=== PATIENT | male | born 1975 | race Caucasian/White ===

== ENCOUNTER 2024-05-11 07:51 | Outpatient (REF) | payer OTHER, SELFPAY ==
--- NOTE | ~2024-05-11 | XR_ITS ---
EXAMINATION: XR HAND 3 OR MORE VIEWS LEFT HISTORY: M79.642 - Pain in left hand COMPARISON: There are no prior studies available for comparison. FINDINGS: Three views of the left hand are submitted. Osseous mineralization is normal. There is no fracture or dislocation. The joint spaces are preserved. The soft tissues are unremarkable. XR/XR hand LT min 3V IMPRESSION: Unremarkable examination of the left hand. Electronically signed by: Kevin Leslie MD 05/13/2024 10:55 AM NAUN
== END 2024-05-11 07:52 | disposition home or self-care (01) ==
LOC: HO.HOSX 07:51
DX: M65.312 Trigger thumb, left thumb (principal)
CPT/HCPCS: 73130

== ENCOUNTER 2024-05-11 08:16 | Outpatient (AMB) | payer OTHER, SELFPAY ==
--- NOTE | 2024-05-11 08:23 | MHC.OFFVIS ---
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 Patient reports that he has been having pain in the left thumb for about 2 months now. Denies injury. Pain is felt all the time, worse at night. He feels excruciating pain while trying to pull up the sheets in bed. Experiences locking and catching as well as some numbness. He takes Naproxen PRN pain, with mild relief. 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 Patient reports that he has been having pain in the left thumb for about 2 months now. Denies injury. Pain is felt all the time, worse at night. He feels excruciating pain while trying to pull up the sheets in bed. Experiences locking and catching as well as some numbness. He takes Naproxen PRN pain, with mild relief. 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 Neuro: Normal sensation of the tips of all digits of the left hand at this time Vascular: Cap refill brisk Pain: Patient reports tenderness to palpation of the A1 ysabel of the left thumb Mild pain with range of motion of the left thumb ROM: There is no visible and palpable locking and catching of the left thumb in the office today However, the patient does show me a video of his thumb locking and catching a previous time Patient is able to flex and extend all other digits of the left hand fully and without Skin: No lacerations or abrasions. General: No ecchymosis, erythema, or evidence of infection. Psych: Appears grossly normal Affect normal Attitude cooperative Results Reviewed Results Reviewed: X-rays obtained in the office today and independently reviewed by me, Izaiah Dexter PA-C, demonstrate no fracture or acute bony abnormality of the left hand. Assessment & Plan Assessment & Plan (1) Trigger thumb, left thumb: Code(s): M65.312 - Trigger thumb, left thumb Category: Medical Plan 1. Trigger thumb, left I educated the patient about the condition. I discussed both operative and nonoperative treatment options. The patient would like to proceed with surgery. The risks and benefits of operative treatment were discussed with the patient and the patient wishes to proceed with surgery. These risks include, but are not limited to, risk of damage to blood vessels, nerves, tendons, infection, recurrence, incomplete relief of preoperative symptoms, persistent pain, possible need for further surgery, and the risks associated with regional blocks and/or anesthesia. Plan is to take the patient to the operating room at some point in the next few weeks for the following procedures: 1. Left trigger thumb release under local anesthesia All of the preoperative paperwork including the consent was discussed today. All of the patient's questions were answered in the clinic today. The patient understands that they will be in contact with our surgical oncologist to discuss scheduling their procedure. Patient denies diabetes, blood thinners, asthma, heart issues, lung issues, kidney issues, or current smoking. Orders: Orders XR hand LT min 3V Today M79.642 - Pain in left hand Coding Level of Care Code New Pt Level 4 (85433) Diagnoses Trigger thumb, left thumb M65.312
--- OUTSIDE RECORDS SUMMARY | 2024-05-11 08:25 | XMS_ITS | Data Portability ---
Author Organization [facility], [facility] Address [address] [place] [address] Assessment Encounter Date Assessment Date Assessment LastModified by Organization Details LastModified Time 09/03/2023 09/03/2023 R CTR 08/07/23 L CTR 08/21/23 [email or web address] Not available 09/01/2023 11:22:19 Plan of Treatment Reminders Order Date Submit Date Provider Last Modified By Organization Details Last Modified Time Details Appointments None record ed. Lab None record ed. Referral None record ed. Procedures None record ed. Surgeries None record ed. Imaging None record ed. Medication Orders None record ed. Patient TargetsNo targets recorded. Patient InstructionsNo instructions recorded. Reason for Referral None Reported. Results Created Date Observation Date Name Description Value Unit Range Abnormal Flag Note LastModifiedBy Organization Detail LastModifiedTime 01/02/2008/06/2021 imagi ng/di agnos tic resul t No observ ation record ed. [email or web address] Not Available 12/05 05:46:56 01/02/20 24 04/09/2020 imagi ng/di agnos tic resul t No observ ation record ed. [email or web address] Not Available 12/05 05:47:44 01/02/20 24 10/07/2018 imagi ng/di agnos tic resul t No observ ation record ed. [email or web address] Not Available 12/05 05:47:53 Result Notes None recorded. Procedures Surgical History Date Name Laterality Status Provider Name and Address Organization Details Recorded Time CARPAL TUNNEL RELEASE (SURG) completed DIANNA ELIZABETH [facility] 08/08/2023 08:15:36 Imaging Results Imaging Date Name Status [facility] Details LastModified Time 08/06/2021 imaging/diag nostic result completed Information not available 01/02/2024 05:46:56 04/09/2020 imaging/diag nostic result completed Information not available 01/02/2024 05:47:44 10/07/2018 imaging/diag nostic result completed Information not available 01/02/2024 05:47:53 Procedure Notes None recorded. Medical Equipment None Reported. Medications Name Sig Start Date Stop Date Status Note LastModified by Organization Details LastModified Time amoxicillin 500 mg capsule TAKE ONE CAPSULE BY MOUTH EVERY 6 HOURS UNTIL GONE active Not Available Not Available N ot Available ibuprofen 800 mg tablet TAKE ONE TABLET BY MOUTH EVERY 8 HOURS NEEDED FOR PAIN active Not Available Not Available No t Available acetaminophe n ER 650 mg tablet,exten ded release TAKE ONE TABLET BY MOUTH EVERY 6 HOURS NEEDED FOR PAIN active Not Available Not Available No t Available pseudoephedr ine-guaifene sin ER 80-700 mg tablet,exten ded release 1 po qhs 2011 active Statu s: 'Curr ent'; Not Available Not Available Not Available omeprazole 20 mg capsule,salvador yed release TAKE 1 CAPSULE BY MOUTH ONCE DAILY active Not Available Not Available No t Available sertraline 50 mg tablet TAKE 1/2 HALF) A TABLET BY MOUTH NIGHTLY FOR 7 DAYS, THEN INCREASE TO 1 TABLET NIGHTLY active Not Available Not Available No t Available naproxen 500 mg tablet TAKE ONE TABLET BY MOUTH TWICE A DAY NEEDED FOR PAIN active Not Available Not Available No t Available oxycodone 5 mg tablet TAKE ONE TABLET BY MOUTH EVERY 6 HOURS NEEDED FOR PAIN active Not Available Not Available No t Available rosuvastatin 10 mg tablet TAKE ONE TABLET BY MOUTH EVERY EVENING AT BEDTIME - PLEASE GET FASTING LABS DONE WHEN ALMOST DONE WITH THIS RX active Not Available Not Available No t Available tadalafil 20 mg tablet TAKE ONE TABLET BY MOUTH 2 HOURS PRIOR TO INTERCOURSE active Not Available Not Available Not Available oxycodone HCl-oxycodon e-ASA twice a dayDO NOT DRIVE WHILE TAKING THIS MEDICATION 2021 active Statu s: 'Curr ent'; Not Available Not Available Not Available Vitals None Recorded Social History None recorded. Functional Status None recorded. Mental Status None recorded. Family History Nothing Reported. Medical History No medical history recorded. Past Encounters Encounter ID Performer Location Encounter Start Date Encounter Closed Date Diagnosis/Indication Diagnosis SNOMED-CT Code Diagnosis ICD10 Code Diagnosis Note [id number] Esperanza Groves, OTR/L,CHT [place] [address] [place] [address] 09/03/2023 08:14:37 09/03/2023 08:52:49 Postoperative care [id number] Z48.89 Sutures are removed today without complicati on. Education regarding the involved anatomy and the surgical procedure was well received. Scar massage was demonstrat ed including a variety of movements to disperse the fibrotic tissue which, if untouched, would create a thickened area of scar. This is instructed with a handout given to the patient. Further discussion with regards to lymphatic flow and the tracking of fluids down the fingers, across the palm and through the wrists to the lymph node was provided with a demonstrat ion for manual edema mobilizati on techniques . Additional home exercises including tendon gliding and median nerve gliding were demonstrat ed in the office today with a handout also provided. A small amount of therapy putty was introduced and demonstrat ed with the correspond ing worksheet was provided as well. Further discussion about the MELT technique using a small ball for pillar pain with informkeon n was provided. Per the surgeon , since there are no wound care complicati ons or concerns, no follow up appointmen t needed. The patient has been educated with a significan t Home Exercise Program to be completed over the next 2 weeks. The patient was instructed to contact the office if there should arise any concerns with the surgical site or if there is not sufficient functional recovery. All questions, with regards to return to functional activities , are answered prior to leaving the office today. This office visit was complete at 30 minutes. 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 The patient demonstrat es light avoids use of the surgical hand for such activities as gathering personal items, and adjusting the chair. The patient shared their personal experience over the last 4 weeks living with a postoperat charleen hand and modifying activities around the house. Fluctuatio ns in pain levels and the use of medication is also reviewed. The left hand surgical wound is inspected and found to be clean and dry. The edges of the incision are approximat ed with intact sutures. Patient has intact neurovascu lar structures with only slight tenderness at the incision. No surroundin g erythema, wound drainage, warmth or signs of infection. The patient states no pain when palpating around the surgical site and the surroundin g structures . The right hand surgery site is well-heale d with some pink sensitive skin and dry edges. There is minimal thickness or ridging at the surgery site. We do see some tightness of the thenar and hyperthena r upon palpation The digits on both hands are able to demonstrat e a nearly full composite fist. Thumb is able to flex and oppose to the small finger. Digits are able to demonstrat e full extension/ hyperexten ochoa to open and flatten the palm. The wrist haves nearly full flexion /extension /circumduc tion range of motion. The patient is able to demonstrat e both tip, tripod, and lateral pinch. The thenar muscle shows no atrophy. Strength of the first dorsal interossei /adductor bilaterall y is 5/5. The distal sensation for light touch is assessed. The patient is bilaterall y able to demonstrat e a positive response to light touch. The patient reports difficulti es with fine sensation as related to dexterity tasks with the thumb, index, middle fingers. With regards to the left surgical scar, there is a thickness and raised area at the central portion. Scabbing, dry skin and fibrotic cells create a ridge at the volar central palm. This may prove to be detrimenta l with functional grasp tasks. Health Concerns Section Related Observation LastModified by Organization Detai ls LastModified Time None Recorded Concern Status LastModified by Organization Details LastModified Time None Recorded Advance Directives Directive None Recorded Payers None recorded. 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 He had the surgery with Dr. Gold for the right hand on 08/26) on left hand on 08/21/2023. Esperanza Groves, JASONR/L,T [address] [facility] [facility] [address], [place], [address], [facility] [place] [facility] 09/03/2023 08:52:43
[2024-05-11 08:27] VITALS: BMI 32.7
== END 2024-05-11 08:39 | disposition home or self-care (01) ==
PROVIDERS: PCP Nurse Practitioner Family
DX: M65.312 Trigger thumb, left thumb (principal)
CPT/HCPCS: 99204

== ENCOUNTER 2024-07-13 10:47 | Day surgery (SDC) | payer OTHER, SELFPAY ==
--- OUTSIDE RECORDS SUMMARY | 2024-07-12 16:55 | XMS_ITS | Data Portability ---
Author Organization [facility], [facility] Address [address] [place] [address] Assessment Encounter Date Assessment Date Assessment LastModified by Organization Details LastModified Time 09/03/2023 09/03/2023 R CTR 08/07/23 L CTR 08/21/23 [email or web address] Not available 09/01/2023 11:22:19 Plan of Treatment [...] CARPAL TUNNEL RELEASE (SURG) completed DIANNA ELIZABETH [facility] 08/08/2023 08:15:36 Imaging Results Imaging Date Name Status [facility]Modified by [facility] Details LastModified Time 08/06/2021 imaging/diag nostic result [...] SNOMED-CT Code Diagnosis ICD10 Code Diagnosis Note [id number] Esperanza Groves, OTR/L,CHT [place] [address] [place] [address] 09/03/2023 08:14:37 09/03/2023 08:52:49 Postoperative care [id number] Z48.89 Sutures are removed today without complicati [...] 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 He had the surgery with Dr. Gold for the right hand on 08/26) on left hand on 08/21/2023. Esperanza Groves, JASONR/L,T [address] [facility] [address], [place], [address], [facility] [place] [facility] 09/03/2023 08:52:43
[2024-07-13 11:39] VITALS: BP 140/80; PULSE 81; RESP 15; TEMP 36.4; O2SAT 97; BMI 33.5
--- NOTE | 2024-07-13 12:04 | MHC.SHP ---
Pre-Procedural Eval Section A - 24 Hr Update-Section A only Date of Service: 07/13/24 The patient is an INPATIENT: No Changes since office visit: No Cold of Flu in the past 2 weeks, No New Medical Problems, No Changes in Medication and No Patient answered all questions The patient has been examined within 24 hours of the surgical procedure. The History & Physical has been completed within 30 days and I have reviewed it.: Yes Section B - Complete if H&P > 30 days Chief Complaint: Trigger thumb, left thumb Allergies: Allergies Allergy/AdvReac Type Severity Reaction Status Date / Time No Known Allergies Allergy Verified 07/13/24 11:43 Plan Diagnosis/Plan: Unchanged I have reviewed the history and physical and performed a pertinent physical examination on my patient. No changes have occurred unless specified. Time Spent With Patient Time: Total time managing care of this patient today ____ minutes.
--- NOTE | 2024-07-13 12:04 | W.PM.OPN ---
Operative Note Operative Note Date of Service: 07/13/24 Narrative: Operative Note Preop diagnosis: 1. Left thumb Trigger finger Postop diagnosis: 1. Left thumb Trigger finger Procedure: 1. Left thumb A1 ysabel release Surgeon: Geri Wing MD Pad Making Machine Operator: Izaiah WOLFF Anesthesia: local block using 1% lidocaine with epinephrine Findings: No locking or catching after A1 ysabel release EBL: Less than 5 mL Tourniquet time: None Specimens: None Complications: None Disposition: Brought to recovery room in stable condition Plan: Follow-up for 10-14 days for wound check and suture removal Indications: The patient is 49 years old, with a left thumb trigger finger that has been unresponsive to nonoperative management. The risks and benefits of operative treatment including but not limited to risk of damage to blood vessels, nerves, tendons, infection, persistent pain, persistent symptoms, recurrence or possible need for additional surgery were discussed with the patient and the patient wishes to proceed with surgery. Procedure: Once consent was obtained a local block was performed in the preop area using a combination of 1% lidocaine with epinephrine. The patient was then brought back to the operating suite and placed on the operative table in supine position. The left upper extremity was prepped and draped in a standard surgical fashion. Once assured that we had a good block, a 1.5 cm oblique incision was made centered over the A1 ysabel of the left thumb . The incision was made through the skin to the subcutaneous tissues using a #15 blade. Careful dissection was made down to the level of the A1 ysabel using tenotomy scissors, with care being taken to protect the nearby neurovascular structures. A longitudinal incision was made in the A1 ysabel 1st using a #15 blade, then using tenotomy scissors under direct visualization. The A1 ysabel was noted to be thickened. Following our A1 ysabel release, we no longer saw any locking or catching of the digit with flexion and extension. Once satisfied with our A1 ysabel release the wound was copiously irrigated with normal saline and hemostasis was obtained with a brief period of local pressure. The skin edges were reapproximated with some 5.0 nylon suture material and a sterile dressing was applied. The patient appears to have tolerated the procedure well and with no complications. All digits were well vascularized at the conclusion of the case.
[2024-07-13 13:05] VITALS: BP 155/93; PULSE 80; RESP 22; TEMP 36.8; O2SAT 98
== END 2024-07-13 13:05 | disposition home or self-care (01) ==
PROVIDERS: PCP Nurse Practitioner Family; Visit Provider Orthopaedic Surgery
PROC: (CPT 26055; principal; 2024-07-13 14:30)
DX: M65.312 Trigger thumb, left thumb (principal); M79.645 Pain in left finger(s); R20.0 Anesthesia of skin; Z79.1 Long term (current) use of non-steroidal anti-inflammatories (NSAID); Z98.890 Other specified postprocedural states
CPT/HCPCS: 26055; J0171; J2003

== ENCOUNTER → 2024-07-13 10:47 | Outpatient (BNV) | payer OTHER, SELFPAY | PROVIDERS: PCP Nurse Practitioner Family; Visit Provider Orthopaedic Surgery | DX: M65.312 Trigger thumb, left thumb (principal) | CPT/HCPCS: 26055 ==

== ENCOUNTER 2024-07-21 08:41 | Outpatient (AMB) | payer OTHER, SELFPAY ==
--- NOTE | 2024-07-21 08:45 | A.OFFVIS_ITS ---
Intake Visit Reasons: PO LT trigger thumb 07/08/24 AR Intake Note: Mukul is a 49 year old right hand dominant male who presents today post operatively s/p Left thumb A1 ysabel release DOS: 07/13/24 w/ Dr Geri Wing. Sutures removed and steri strips applied at today's visit. Patient states that his symptoms has improved. Allergies No Known Allergies Allergy (Verified 07/21/24 08:45) HPI HPI PO LT trigger thumb 07/08/24 AR: Details: Mukul is a 49 year old right hand dominant male who presents today post operatively s/p Left thumb A1 ysabel release DOS: 07/13/24 w/ Dr Geri Wing. Sutures removed and steri strips applied at today's visit. Patient states that his symptoms has improved. Denies any ongoing locking or catching of the left thumb. Denies any numbness or tingling of the left hand. No other acute complaints or concerns at this time. 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 Neuro: Normal sensation of the tips of all digits of the left hand at this time Vascular: Cap refill brisk Pain: Patient reports no tenderness to palpation of the A1 ysabel of the left thumb Mild pain with range of motion of the left thumb ROM: There is no visible and palpable locking and catching of the left thumb in the office today Patient is able to flex and extend all other digits of the left hand fully and without Skin: Well approximated and well healing incision site noted of the A1 ysabel of the left thumb General: No ecchymosis, erythema, or evidence of infection. Psych: Appears grossly normal Affect normal Attitude cooperative Assessment & Plan Assessment & Plan (1) Trigger thumb, left thumb: Code(s): M65.312 - Trigger thumb, left thumb Category: Medical Plan 1. Status post left trigger thumb release DOS 07/08/2024 Patient appears to be recovering well postoperatively Patient is educated about the typical recovery course Sutures removed, Steri-Strips applied At this time, patient is educated he will require no further acute follow-up with us, as he appears to have recovered very well Patient was amenable to this plan Patient will follow-up as needed with any acute concerns Coding Level of Care Code Global (67055) Diagnoses Trigger thumb, left thumb M65.312
== END 2024-07-21 09:11 | disposition home or self-care (01) ==
LOC: HO.HOS 08:41
PROVIDERS: PCP Nurse Practitioner Family
DX: M65.312 Trigger thumb, left thumb (principal)
CPT/HCPCS: 99024

== ENCOUNTER → 2024-07-21 08:41 | Outpatient (BNVA) | payer OTHER, SELFPAY | PROVIDERS: PCP Nurse Practitioner Family | DX: Z47.89 Encounter for other orthopedic aftercare (principal); Z98.890 Other specified postprocedural states; M65.312 Trigger thumb, left thumb | CPT/HCPCS: 99212 ==

== ENCOUNTER 2024-12-07 08:07 | Outpatient (AMB) | payer OTHER, SELFPAY ==
[2024-12-07 08:17] VITALS: BMI 33.4
--- NOTE | 2024-12-07 08:17 | A.OFFVIS_ITS ---
Vital Signs 12/07/24 08:17 Height 5 ft 10 in Weight 233 lb BMI 33.4 Intake Visit Reasons: Left knee pain and giving way Intake Note: Mukul is a 49 year old male who presents with complaints of progressively worsening left knee pain and giving way. The patient underwent left knee anterior cruciate ligament reconstructive surgery by Dr. Prieto several years ago after twisting his knee while playing basketball. The patient states that several months ago he reaggravated his knee. He twisted his knee once again and had acute onset of pain along the medial aspect of his knee. He states that his left knee will give out several times per day. He has failed the last 6 weeks of conservative treatment which has included Tylenol, anti-inflammatory medicines and formal physical therapy. The therapy seems to have aggravated his pain. At this point his left knee pain and mechanical symptoms are interfering with his activities of daily living and his ability to sleep well through the night. 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 Physical Exam Vital Signs: BMI result Body Mass Index 33.4 Const Other: Well-nourished well-developed very friendly male awake alert and oriented x3 in no acute distress Extrem Other: Bilateral lower extremity examination shows good capillary refill, no skin lesions noted, normal sensation light touch Left knee examination shows that the surgical incisions are well healed, no erythema, mild crepitus with range of motion, tenderness along his medial joint line, positive Jj's test Results Reviewed Results Reviewed: X-rays of the patient's left knee show mild diffuse joint space narrowing, no acute bony abnormalities Assessment & Plan Assessment & Plan (1) Tear of medial meniscus of left knee: Code(s): S83.242A - Other tear of medial meniscus, current injury, left knee, initial encounter Category: Medical Plan Mr. Clark presents with left knee pain and mechanical symptoms most likely due to a tear of his medial meniscus. Thus, I will send the patient for an MRI of his left knee for further evaluation. I will contact him by phone once the MRI results are available. Feel free to call me at any time should questions regarding his orthopedic management arise. I spent 20 minutes in reviewing the patient's records and imaging studies, seeing the patient and documenting in the medical record. Orders: Orders XR knee LT 3V Today M25.562 - Pain in left knee MR knee LT wo con 12/08/24 S83.242A - Other tear of medial meniscus, current injury, left knee, initial encounter Coding Level of Care Code Est Pt Level 3 (17922) Complex EM visit Add On G2211 Diagnoses Tear of medial meniscus of left knee S83.242A
== END 2024-12-07 08:36 | disposition home or self-care (01) ==
LOC: HO.HOS 08:08
PROVIDERS: PCP Nurse Practitioner Family; Visit Provider Orthopaedic Surgery
DX: S83.242A Other tear of medial meniscus, current injury, left knee, initial encounter (principal)
CPT/HCPCS: 99213

== ENCOUNTER → 2024-12-07 08:10 | Outpatient (BNV) | payer OTHER, SELFPAY | PROVIDERS: Visit Provider Radiology Diagnostic Radiology | DX: M25.562 Pain in left knee (principal) | CPT/HCPCS: 73562 ==

== ENCOUNTER 2024-12-07 08:41 | Outpatient (REF) | payer OTHER, SELFPAY ==
--- NOTE | ~2024-12-07 | XR_ITS ---
EXAMINATION: XR KNEE 3 VIEWS LEFT HISTORY: M25.562 - Pain in left knee COMPARISON: There are no prior studies available for comparison. FINDINGS: Three views of the left knee are submitted. Osseous mineralization is normal. There are changes of prior ACL repair. There is no fracture or dislocation. There is mild degenerative change of the patellofemoral compartment with osteophyte formation. The soft tissues are unremarkable. XR/XR knee LT 3V IMPRESSION: Status post ACL repair. Mild degenerative change of the patellofemoral compartment. Electronically signed by: Kevin Leslie MD 12/07/2024 09:17 AM EDT
== END 2024-12-07 08:42 | disposition home or self-care (01) ==
LOC: HO.HOSX 08:41
PROVIDERS: Visit Provider Orthopaedic Surgery
DX: S83.242A Other tear of medial meniscus, current injury, left knee, initial encounter (principal); M25.562 Pain in left knee; X50.0XXA Overexertion from strenuous movement or load, initial encounter
CPT/HCPCS: 73562; 99212

== ENCOUNTER → 2024-12-24 08:33 | Outpatient (BNV) | payer OTHER, SELFPAY | PROVIDERS: Visit Provider Radiology Diagnostic Radiology | DX: M23.42 Loose body in knee, left knee (principal) | CPT/HCPCS: 73721 ==

== ENCOUNTER 2024-12-24 08:34 | Outpatient (REF) | payer OTHER, SELFPAY ==
--- NOTE | ~2024-12-24 | MR_ITS ---
CLINICAL HISTORY: S83.242A - Other tear of medial meniscus, current injury, left knee, ini... Exam: MRI of the left knee without intravenous contrast. Comparison: Radiographs december 07, 2024. Findings: Patient has undergone prior ACL reconstruction. The reconstructed ligament is intact. Mild increased signal intensity along the course of the reconstructed ligament without disruption of the fibers. Posterior cruciate ligament is intact. Subtle degenerative appearing tear of the junction of the posterior horn and body of the medial meniscus. No tears of the lateral meniscus. Quadriceps tendon and patellar tendon are intact. Medial and lateral retinaculum are intact. Medial collateral ligament and lateral collateral complex are intact. Partial-thickness cartilage defects are seen along the lateral aspect of the medial femoral condyle. Subtle cartilage fibrillation seen at the mid weight-bearing surface of the lateral femoral condyle. Mild cartilage softening at the median eminence of the patella with subtle partial-thickness cartilage defects. Moderate-sized knee joint effusion. Posterior loose body measures 9 mm in size. There is a small Bruno's cyst. This Bruno's cyst is leaking inferiorly. Impression: 1. Intact ACL reconstruction. 2. Degenerative appearing tear of the medial meniscus at the junction of the posterior horn and body. 3. Tricompartmental osteoarthritis as above. Joint effusion with posterior loose body. 4. Leaking Bruno's cyst. This document has been electronically signed by: Braden Galloway MD on 12/25/2024 10:24:33
== END 2024-12-24 08:35 | disposition home or self-care (01) ==
LOC: HO.MRI 08:34
PROVIDERS: Visit Provider Orthopaedic Surgery
DX: S83.242A Other tear of medial meniscus, current injury, left knee, initial encounter (principal)
CPT/HCPCS: 73721

== ENCOUNTER 2025-01-20 10:20 | Outpatient (AMB) | payer OTHER, SELFPAY ==
[2025-01-20 11:01] VITALS: BMI 33.4
--- NOTE | 2025-01-20 11:01 | A.OFFVIS_ITS ---
Vital Signs 01/20/25 11:01 Height 5 ft 10 in Weight 233 lb BMI 33.4 Intake Visit Reasons: OV - Left MMT & OA - Discuss Surgery Intake Note: Mukul is a 49 year old male who presents today for a follow up of his Left Knee. Patient was last seen with Dr. Vaca where he reported history of an ACL Reconstruction with Dr. Prieto at [facility]. Currently reports a twisting injury to the Left knee several months ago. An MRI was ordered by Dr. Vaca and upon receiving results a referral was placed to discuss surgery. Allergies No Known Allergies Allergy (Verified 12/07/24 08:20) HPI HPI OV - Left MMT & OA - Discuss Surgery: Details: Mukul is a 49 year old male who presents today for a follow up of his Left Knee. Patient was last seen with Dr. Vaca where he reported history of an ACL Reconstruction with Dr. Prieto at [facility]. Currently reports a twisting injury to the Left knee several months ago. An MRI was ordered by Dr. Vaca and upon receiving results a referral was placed to discuss surgery. He describes difficulty with daily activities. He noticed this worsens several months ago when he was doing some moving at home. He stopped those activities over 2 months ago and still has had pain. He describes sharp medial-sided pain with twisting. He denies giving way. 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 There is tenderness to palpation medial joint line. He has a negative Ranjan's. Stable to varus and valgus stress. 2+ dorsalis pedis pulse. Skin intact to light touch. Vital Signs: BMI result Body Mass Index 33.4 Extrem Other: I personally reviewed the MR images. Impression: 1. Intact ACL reconstruction. 2. Degenerative appearing tear of the medial meniscus at the junction of the posterior horn and body. 3. Mild tricompartmental osteoarthritis as above. Joint effusion with posterior loose body. 4. Leaking Bruno's cyst. Results Reviewed Results Reviewed: I personally reviewed the MR images. Impression: 1. Intact ACL reconstruction. 2. Degenerative appearing tear of the medial meniscus at the junction of the posterior horn and body. 3. Tricompartmental osteoarthritis as above. Joint effusion with posterior loose body. 4. Leaking Bruno's cyst. Assessment & Plan Assessment & Plan (1) Tear of medial meniscus of left knee: Code(s): S83.242A - Other tear of medial meniscus, current injury, left knee, initial encounter Category: Medical Plan: This is a 49-year-old gentleman with a symptomatic left knee medial meniscus tear. His symptoms has been present for over 3 months and his MRI demonstrates a degenerative medial meniscus tear with an intact ACL. I reviewed the MRI with him and the treatment options. Given the sharp medial knee pain that is preventing him from engaging in meaningful daily activities I recommend arthroscopic partial medial meniscectomy. I explained the him the risks, benefits and alternatives to surgery. I explained the possibility of increased postoperative irritation due to his mild tricompartmental osteoarthritis. I discussed the risk of worsening arthritis in the future. I have discussed the risks of infection, stiffness and pain. He expressed understanding. All his questions were answered to the best of my abilities. Coding Level of Care Code Est Pt Level 4 (96102) Diagnoses Tear of medial meniscus of left knee S83.242A
== END 2025-01-20 11:41 | disposition home or self-care (01) ==
LOC: HO.HOS 10:21
PROVIDERS: Visit Provider Orthopaedic Surgery
DX: S83.242A Other tear of medial meniscus, current injury, left knee, initial encounter (principal)
CPT/HCPCS: 99214

== ENCOUNTER → 2025-01-20 10:20 | Outpatient (BNVA) | payer OTHER, SELFPAY | PROVIDERS: Visit Provider Orthopaedic Surgery | DX: S83.242A Other tear of medial meniscus, current injury, left knee, initial encounter (principal); X50.1XXA Overexertion from prolonged static or awkward postures, initial encounter; Y93.01 Activity, walking, marching and hiking; Y92.9 Unspecified place or not applicable; Y99.9 Unspecified external cause status; M17.12 Unilateral primary osteoarthritis, left knee; M66.0 Rupture of popliteal cyst; Z98.890 Other specified postprocedural states | CPT/HCPCS: 99212 ==

== ENCOUNTER 2025-02-16 05:59 | Day surgery (SDC) | payer OTHER, SELFPAY ==
[2025-02-08 11:04] VITALS: BMI 33.0
--- NOTE | 2025-02-09 12:05 | HO.ANESPROP2 ---
Documented by User: Sarah Garza NP 02/09/25 12:08 HPI - Anesthesia Eval Consult details Narrative: 50 yr old male for left Knee Arthroscopy with Medial Meniscectomy; PAT done by RN via phone GERD: on PPI PMFSH Active Problems Active Problems: All Active Problems Tear of medial meniscus of left knee (Acute) Left knee pain (Acute) Trigger thumb, left thumb (Acute) Past Medical History Medical History NAFL (nonalcoholic fatty liver) Hiatal hernia Hx of concussion Left knee pain Erectile dysfunction GERD (gastroesophageal reflux disease) HLD (hyperlipidemia) Surgical History Surgical History Hx of lymph node biopsy Hx of vasectomy Hx of thumb surgery (07/13/24) Hx of arthroscopy of left knee (2015) S/p bilateral carpal tunnel release (2024) S/P right rotator cuff repair (2020) History of back surgery (2020) Social History Social History Household Members: Significant Other Housing: House Are you a primary health care marketing specialist to a significant other at home: No Do you presently have visiting nurse or other home services: No Patient Tobacco Use Status: Current someday Tobacco user Tobacco use type: Cigar Use of substances other than those prescribed or required for medical reasons: No Have you been hit, kicked, punched, or otherwise hurt by someone within the past year? 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: employed Current occupation: [employer] Allergies Allergy/AdvReac Type Severity Reaction Status Date / Time No Known Allergies Allergy Verified 02/08/25 11:03 Home Medications ?Medication ?Instructions ?Recorded ?Confirmed ?Last Taken ?Type omeprazole 20 mg capsule,delayed 20 mg PO DAILY 05/11/24 02/08/25 Unknown History release rosuvastatin 10 mg tablet 10 mg PO BEDTIME 05/11/24 02/08/25 Unknown History tadalafil 20 mg tablet 20 mg PO DAILY PRN Sexual Activity 05/11/24 02/08/25 Unknown History Exam Height,Weight and Vital Signs: Height 5 ft 10 in Weight 104.326 kg Narrative Narrative: EKG 05/2024 at [facility] during ED admission for GI symptoms sinus tachycardia, rate 105 consider septal infarct, lead placement No acute ST-T wave abnormality Documented by User: Daylin Singh MD 02/16/25 08:04 PMFSH Past Medical History Medical History NAFL (nonalcoholic fatty liver) Hiatal hernia Hx of concussion Left knee pain Erectile dysfunction GERD (gastroesophageal reflux disease) HLD (hyperlipidemia) Family History Family history of problems with anesthesia: No Surgical History Surgical History Hx of lymph node biopsy Hx of vasectomy Hx of thumb surgery (07/13/24) Hx of arthroscopy of left knee (2015) S/p bilateral carpal tunnel release (2024) S/P right rotator cuff repair (2020) History of back surgery (2020) History of Problems with Anesthesia: No Social History Social History Household Members: Significant Other Housing: House Are you a primary health care marketing specialist to a significant other at home: No Do you presently have visiting nurse or other home services: No Patient Tobacco Use Status: Current someday Tobacco user Tobacco use type: Cigar Use of substances other than those prescribed or required for medical reasons: No Have you been hit, kicked, punched, or otherwise hurt by someone within the past year? 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 Meds Allergies Allergy/AdvReac Type Severity Reaction Status Date / Time No Known Allergies Allergy Verified 02/08/25 11:03 Home Medications ?Medication ?Instructions ?Recorded ?Confirmed ?Last Taken ?Type omeprazole 20 mg capsule,delayed 20 mg PO DAILY 05/11/24 02/08/25 Unknown History release rosuvastatin 10 mg tablet 10 mg PO BEDTIME 05/11/24 02/08/25 Unknown History tadalafil 20 mg tablet 20 mg PO DAILY PRN Sexual Activity 05/11/24 02/08/25 Unknown History Exam Airway Mallampati Class: III TM Dist: <=3cm Neck ROM: Full Heart: rrr Lungs: cta Assessment and Plan Assessment Anesthesia Assessment: Anesthesia Plan Discussed and Chart Reviewed Final Anesthetic Review Family History of Problems with Anesthesia: No History of Problems with Anesthesia: No NPO: Yes ASA Class: III Final Preanesthetic Review: No Changes in Pt Med Stat, Meds/Allgs Chart Reviewed, Consent Obtained/Reviewed and Anes Risks/Benef Reviewed Patient Risk: Intermediate Procedure Risk: Low Anesthetic Plan Anesthetic Plan: GA and Agree w/ Assess. and Plan Disposition: Standard PACU
[2025-02-16 06:11] VITALS: BMI 33.4
[2025-02-16 06:18] VITALS: BP 150/87; PULSE 84; RESP 16; TEMP 36.8; O2SAT 95
[2025-02-16] MEDS: Lactated Ringers 1,000 ML 100 ML IVCONT (06:29)
--- NOTE | 2025-02-16 07:31 | MHC.SHP ---
Pre-Procedural Eval Section A - 24 Hr Update-Section A only Date of Service: 02/16/25 The patient is an INPATIENT: No Changes since office visit: No Cold of Flu in the past 2 weeks, No New Medical Problems, No Changes in Medication and No Patient answered all questions The patient has been examined within 24 hours of the surgical procedure. The History & Physical has been completed within 30 days and I have reviewed it.: Yes Section B - Complete if H&P > 30 days Chief Complaint: Other tear of medial meniscus, current injury, lef Allergies: Allergies Allergy/AdvReac Type Severity Reaction Status Date / Time No Known Allergies Allergy Verified 02/08/25 11:03 Plan I have reviewed the history and physical and performed a pertinent physical examination on my patient. No changes have occurred unless specified. Time Spent With Patient Time: Total time managing care of this patient today ____ minutes.
--- NOTE | 2025-02-16 08:19 | P.OP_ITS ---
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 A time-out was called to identify proper site proper procedure proper surgeon and IV antibiotics per weight were administered. There was a NEGATIVE PIVOT SHIFT. I began by exsanguinating the limb and insufflating tourniquet to 300 mm Hg. Then made a standard anterolateral stab incision. The knee was insufflated with water and 30 degree arthroscope was placed. There was grade 1 fibrillations of the patella and overall suprapatellar pouch and the gutters were clean. There were stable G3 changes of the central portion of the femoral trochlea. I descended into the medial compartment where I made my medial portal under direct visualization. There was obvious of complex tear of the posterior horn of the medial meniscus. The root was intact. There were grade 2/3 changes in the posterior aspect of the MFC and G 2 changes of the far medial aspect of the tibial plateau. The ACL graft was examined and intact. The lateral compartment was normal. I then used a combination of biter, shaver and cautery to remove unstable portions of the posterior horn of the meniscus. Approximately 30% meniscal volume was removed. Once I was satisfied with the extend opf meniscectomy I used a shaver to debride the loose cartilage of the MFC. I then removed all instrumentation and closed the portals with skin glue. 25 mL of 2% Marcaine with epinephrine was injected into the joint and the surrounding soft tissues. Patient was then placed in sterile dressing extubated brought recovery room stable condition. There were no known complications.
[2025-02-16 08:25] VITALS: BP 150/85; PULSE 80; RESP 12; TEMP 36.7; O2SAT 97
[2025-02-16 08:30] VITALS: BP 158/81; PULSE 77; RESP 9; O2SAT 94
[2025-02-16 08:35] VITALS: BP 136/83; PULSE 75; RESP 8; O2SAT 93
[2025-02-16 08:40] VITALS: BP 140/79; PULSE 76; RESP 10; O2SAT 94
[2025-02-16 08:55] VITALS: BP 146/88; PULSE 80; RESP 12; TEMP 37.3; O2SAT 96
== END 2025-02-16 09:47 | disposition home or self-care (01) ==
LOC: HO.SSS 05:59
PROVIDERS: PCP Nurse Practitioner Family; Visit Provider Orthopaedic Surgery
PROC: (CPT 29870; principal; 2025-02-16 07:30)
DX: S83.232A Complex tear of medial meniscus, current injury, left knee, initial encounter (principal); M17.12 Unilateral primary osteoarthritis, left knee; M66.0 Rupture of popliteal cyst; M25.462 Effusion, left knee; M23.42 Loose body in knee, left knee; X50.1XXA Overexertion from prolonged static or awkward postures, initial encounter; X58.XXXA Exposure to other specified factors, initial encounter; Y92.009 Unspecified place in unspecified non-institutional (private) residence as the place of occurrence of the external cause; Y99.9 Unspecified external cause status; E78.5 Hyperlipidemia, unspecified; Z98.890 Other specified postprocedural states
CPT/HCPCS: 29881; J0131; J0165; J0690; J1100; J1885; J2003; J2250; J2405; J2704; J2795; J3010

== ENCOUNTER → 2025-02-16 05:59 | Outpatient (BNV) | payer OTHER, SELFPAY | PROVIDERS: PCP Nurse Practitioner Family; Visit Provider Orthopaedic Surgery | DX: S83.232A Complex tear of medial meniscus, current injury, left knee, initial encounter (principal) | CPT/HCPCS: 29881 ==

== ENCOUNTER 2025-02-22 09:46 | Outpatient (AMB) | payer OTHER, SELFPAY ==
--- NOTE | 2025-02-22 10:07 | A.OFFVIS_ITS ---
Intake Visit Reasons: PO LT knee 02/16/25 NE Intake Note: Mukul is a 50 year old male who presents today for a post operative appointment status post left knee arthroscopy done on 02/16/[address] Chris. Patient reports he is doing well. He has notices some redness on his incision sites for about 2 days now. Allergies No Known Allergies Allergy (Verified 02/22/25 10:13) HPI HPI PO LT knee 02/16/25 NE: Details: Mr. Grace this is a 50-year-old male who presents to the office today status post left knee arthroscopy with partial medial meniscectomy and chondroplasty p erformed on 02/16/[address] Chris. Patient reports that he is having no difficulty with ambulation and is experiencing little to no discomfort. No complaints. [facility] Medical History NAFL (nonalcoholic fatty liver) Hiatal hernia Hx of concussion Left knee pain Erectile dysfunction GERD (gastroesophageal reflux disease) HLD (hyperlipidemia) Surgical History Hx of lymph node biopsy Hx of vasectomy Hx of thumb surgery (07/13/24) Hx of arthroscopy of left knee (2015) S/p bilateral carpal tunnel release (2024) S/P right rotator cuff repair (2020) History of back surgery (2020) Social History Household Members: Significant Other Housing: House Are you a primary long term care phlebotomist to a significant other at home: No Do you presently have visiting nurse or other home services: No Patient Tobacco Use Status: Current someday Tobacco user Tobacco use type: Cigar 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 No signs of infection. Range of motion 0-120. NVI. Psych Appearance: grossly normal Mental Status: mental status grossly normal Attitude: cooperative Assessment & Plan Assessment & Plan (1) Tear of medial meniscus of left knee: Code(s): S83.242A - Other tear of medial meniscus, current injury, left knee, initial encounter Category: Medical Plan Mr. Grace this is a 50-year-old male who presents to the office today status post left knee arthroscopy with partial medial meniscectomy and chondroplasty performed on 02/16/[address] Chris. Patient reports that he is having no difficulty with ambulation and is experiencing little to no discomfort. No complaints. While in the office today sutures are removed and Steri-Strips were applied. He may resume back to normal activities using pain as his guide. He will follow up with Orthopedics p.r.n., sooner if needed. Coding Level of Care Code Global (25709) Diagnoses Tear of medial meniscus of left knee S83.242A
--- OUTSIDE RECORDS SUMMARY | 2025-02-22 11:06 | XMS_ITS | Data Portability ---
Author Organization [facility], [facility] Address [address] [place] [address] Assessment Encounter Date Assessment Date Assessment LastModified by Organization Details LastModified Time 09/03/2023 09/03/2023 R CTR 08/07/23 L CTR 08/21/23 Not available 09/01/2023 11:22:19 Plan of Treatment [...] Abnormal Flag Note LastModifiedBy Organization Detail LastModifiedTime 01/02/20 24 08/06/2021 imagi ng/di agnos tic resul t No [...] CARPAL TUNNEL RELEASE (SURG) completed DIANNA [facility] 08/08/2023 08:15:36 Imaging Results None recorded. Procedure Notes None recorded. Medical Equipment None [...] Diagnosis SNOMED-CT Code Diagnosis ICD10 Code Diagnosis IMO Codes Diagnosis Note [id number] Esperanza Groves, OTR/L,CHT [address] [place], [place] [address] 09/03/2023 08:14:37 09/03/2023 08:52:49 Postoperative care [id number] Z48.89 Sutures are removed today without complicati [...] a small ball for pillar pain with informatio n was provided. 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 He had the surgery with Dr. Gold for the right hand on 08/26) on left hand on 08/21/2023. Esperanza Groves, OTR/L,T [address] [facility] [address], [place], [address], [place] [facility] 09/03/2023 08:52:43
== END 2025-02-22 10:27 | disposition home or self-care (01) ==
LOC: HO.HOS 09:47
PROVIDERS: Visit Provider Physician Assistant
DX: S83.242A Other tear of medial meniscus, current injury, left knee, initial encounter (principal)
CPT/HCPCS: 99024

== ENCOUNTER → 2025-02-22 09:46 | Outpatient (BNVA) | payer OTHER, SELFPAY | PROVIDERS: Visit Provider Physician Assistant | DX: Z98.890 Other specified postprocedural states (principal); S83.242D Other tear of medial meniscus, current injury, left knee, subsequent encounter | CPT/HCPCS: 99212 ==

== ENCOUNTER 2025-03-03 13:55 | Outpatient (REF) | payer OTHER, SELFPAY ==
--- NOTE | ~2025-03-03 | US_ITS ---
EXAMINATION: US TRIPLEX LOWER EXTREMITY, LEFT CLINICAL INFORMATION: Pain and edema, left lower extremity. COMPARISON: None available. TECHNIQUE: Color-flow triplex imaging with spectral analysis and compression Doppler were performed on the left lower extremity. FINDINGS: Respiratory variation, normal compression and augmented flow are demonstrated in the interrogated left common femoral vein, superficial femoral vein, profunda femoral vein, popliteal vein and midcalf peroneal and posterior tibial venous segments. There is a 4.6 x 1.3 x 3.4 cm lobulated complex anechoic lesion with internal echoes and no flow on color Doppler interrogation in the popliteal fossa. US/US venous duplex LE IMPRESSION: No acute deep venous thrombosis interrogated veins, left lower extremity. Negative for DVT. 4.6 cm complex popliteal cyst.. Electronically signed by: Joesph Owen MD 03/03/2025 02:51 PM EDT
--- OUTSIDE RECORDS SUMMARY | 2025-03-03 16:56 | XMS_ITS | Data Portability ---
Author Organization [facility], [facility] Address [address] [place] [address] Assessment Encounter Date Assessment Date Assessment LastModified by Organization Details LastModified Time 09/03/2023 09/03/2023 R CTR 08/07/23 L CTR 08/21/23 [email or web address] Not available 09/01/2023 11:22:19 Plan of Treatment [...] CARPAL TUNNEL RELEASE (SURG) completed DIANNA ELIZABETH [facility] 08/08/2023 08:15:36 Imaging Results None recorded. 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 He had the surgery with Dr. Gold for the right hand on 08/26) on left hand on 08/21/2023. Esperanza Groves, OTR/L,T [address] [facility] [address], [place], [address], [place] [facility] 09/03/2023 08:52:43
== END 2025-03-03 13:56 | disposition home or self-care (01) ==
LOC: HO.US 13:55
PROVIDERS: PCP Nurse Practitioner Family; Visit Provider Physician Assistant
DX: S83.242A Other tear of medial meniscus, current injury, left knee, initial encounter (principal)
CPT/HCPCS: 93971

== ENCOUNTER → 2025-03-03 13:59 | Outpatient (BNV) | payer OTHER, SELFPAY | PROVIDERS: PCP Nurse Practitioner Family; Visit Provider Radiology Diagnostic Radiology | DX: S83.242A Other tear of medial meniscus, current injury, left knee, initial encounter (principal); M71.22 Synovial cyst of popliteal space [Baker], left knee | CPT/HCPCS: 93971 ==

== ENCOUNTER 2025-03-07 09:43 | Outpatient (AMB) | payer OTHER, SELFPAY ==
--- NOTE | 2025-03-07 10:09 | A.OFFVIS_ITS ---
Intake Visit Reasons: OV- Pain and swelling on LT knee Intake Note: Mukul is a 50 year old male who presents today for a post operative appointment status post left knee arthroscopy done on 02/16/[address] Chris. Patient reports he is having a lot of pain and it is feel very hard. He notices a lot of swelling and warmth to touch. Patient notice tenderness on the medial aspect of the knee. Allergies No Known Allergies Allergy (Verified 03/07/25 10:18) HPI HPI OV- Pain and swelling on LT knee: Details: Mr. Clark is a 50-year-old male who presents to the office today for continued left knee pain and swelling status post arthroscopy performed on 02/16/2025 where partial left medial meniscectomy was performed and the patient was noted to have grade 2-3 arthritic changes of the trochlea and MFC. Patient reports that he is having difficulty with range of motion due to the amount of swelling. The patient was sent for an ultrasound on 03/03/2025 to rule out DVT which was negative. [facility] Medical History NAFL (nonalcoholic fatty liver) Hiatal hernia Hx of concussion Left knee pain Erectile dysfunction GERD (gastroesophageal reflux disease) HLD (hyperlipidemia) Surgical History Hx of lymph node biopsy Hx of vasectomy Hx of thumb surgery (07/13/24) Hx of arthroscopy of left knee (2015) S/p bilateral carpal tunnel release (2024) S/P right rotator cuff repair (2020) History of back surgery (2020) Social History Household Members: Significant Other Housing: House Are you a primary senior care specialist to a significant other at home: No Do you presently have visiting nurse or other home services: No Patient Tobacco Use Status: Current someday Tobacco user Tobacco use type: Cigar Current occupational status: employed 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 No surrounding erythema or drainage. No signs of infection. Moderate effusion present. Range of motion 0-90 degrees. NVI. Psych Appearance: grossly normal Mental Status: mental status grossly normal Attitude: cooperative Office Procedures AMB Joint Injection/Aspiration Joint Injection/Aspiration Primary Site: left knee Prep: site was prepped using aseptic technique and injection warnings given Injected: other (30 cc of hazy yellow normal appearing joint fluid was aspirated.) Approach Used: lateral parapatellar Procedure: The patient tolerated the procedure well and other (Patient had pain with aspiration.) Coding 37194 - Large joint Procedure code (CPT) selection complete Assessment & Plan Assessment & Plan (1) Tear of medial meniscus of left knee: Code(s): S83.242A - Other tear of medial meniscus, current injury, left knee, initial encounter Category: Medical (2) Osteoarthritis of left knee: Code(s): M17.12 - Unilateral primary osteoarthritis, left knee Category: Medical Plan Mr. Clark is a 50-year-old male who presents to the office today for continued left knee pain and swelling status post arthroscopy performed on 02/16/2025 where partial left medial meniscectomy was performed and the patient was noted to have grade 2-3 arthritic changes of the trochlea and MFC. Patient reports that he is having difficulty with range of motion due to the amount of swelling. The patient was sent for an ultrasound on 03/03/2025 to rule out DVT which was negative. While in the office today, I discussed with the patient that this is common after knee arthroscopy in the setting of osteoarthritis. I reassured the patient that there is no concern for infection at this time. An ultrasound was obtained and was negative for DVT on 03/03/2025. The patient is having difficulty with range of motion due to the moderate effusion. Therefore, the patient was offered a left knee joint aspiration. The patient was explained the risks, benefits, and alternatives to receiving this injection. After receiving consent for the injection, the patient had the procedure done while in the office today. The patient tolerated the procedure well with no complications. 30 cc of normal appearing yellow hazy joint fluid was obtained. An Ras wrap was then placed over the area for compression. I did educate the patient that there is a risk that the effusion will return. A prescription for diclofenac 75 mg to be taken p.o. b.i.d. was sent to the pharmacy to assist with inflammation. Patient will follow up via telephone encounter over the next few days to report symptoms. If continuation of symptoms are present I would like to see the patient back in the office on a regular basis until symptoms resolve. Medications: New diclofenac sodium 75 mg PO BID PRN 60 tabs 0RF pain 30 days Coding Level of Care Code Global (75745) Diagnoses Tear of medial meniscus of left knee S83.242A Osteoarthritis of left knee M17.12 CPT Codes Coding - 58650 Large joint: 74931 - Large joint ([id number])
--- OUTSIDE RECORDS SUMMARY | 2025-03-07 11:12 | XMS_ITS | Data Portability ---
Author Organization [facility], [facility] Address [address] [place] [address] Assessment Encounter Date Assessment Date Assessment LastModified by Organization Details LastModified Time 09/03/2023 09/03/2023 R CTR 08/07/23 L CTR 08/21/23 [email or web address] Not available 09/01/2023 11:22:19 Plan of Treatment [...] CARPAL TUNNEL RELEASE (SURG) completed DIANNA ELIZABETH [facility] 08/08/2023 08:15:36 Imaging Results None recorded. 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 [id number] G56.02 Upon welcoming the patient from the [...] Raymond Member ID Guarantor Name 10/22/2023 1 [facility] [id number] Mukul Clark [id number] Mukul Clark Notes Date Note Type Note Provider Name and Address Organization Details Recorded Time 09/03/2023 text/html This patient is a very pleasant 48-year-old 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 He had the surgery with Dr. Gold for the right hand on 08/26) on left hand on 08/21/2023. Esperanza Groves, OTR/L,T [address] [facility] [address], [place], [address], [place] [facility] 09/03/2023 08:52:43
== END 2025-03-07 11:16 | disposition home or self-care (01) ==
LOC: HO.HOS 09:43
PROVIDERS: PCP Nurse Practitioner Family; Visit Provider Physician Assistant
DX: S83.242A Other tear of medial meniscus, current injury, left knee, initial encounter (principal); M17.12 Unilateral primary osteoarthritis, left knee
CPT/HCPCS: 20610; 99024

== ENCOUNTER → 2025-03-07 09:43 | Outpatient (BNVA) | payer OTHER, SELFPAY | PROVIDERS: PCP Nurse Practitioner Family; Visit Provider Physician Assistant | DX: S83.242A Other tear of medial meniscus, current injury, left knee, initial encounter (principal); X58.XXXA Exposure to other specified factors, initial encounter; Y93.9 Activity, unspecified; Y92.9 Unspecified place or not applicable; Y99.9 Unspecified external cause status; M17.12 Unilateral primary osteoarthritis, left knee | CPT/HCPCS: 20610; 99212 ==

== ENCOUNTER 2025-04-14 09:08 | Outpatient (AMB) | payer OTHER, SELFPAY ==
--- NOTE | 2025-04-14 09:09 | MHC.OFFVIS ---
Vital Signs 04/14/25 09:10 Height 5 ft 10 in Weight 230 lb BMI 33.0 Intake Visit Reasons: OV - Left Knee Pain & Swelling - s/p asp 03/07/25 Intake Note: Mukul is a 50 year old male who presents today for a follow up of his Left Knee. Hx of Left Knee Arthroscopy 02/16/25. At his last visit on 03/07 the patient had his knee aspiration - with normal looking joint aspirate. A prescription was sent for Diclofenac. Pt states the Diclofenac did not help the pain and he is experiencing intermittent pain and feels tightness behind his knee when he extends his leg. Allergies No Known Allergies Allergy (Verified 04/14/25 09:10) HPI HPI OV - Left Knee Pain & Swelling - s/p asp 03/07/25: Details: Mukul is a 50 year old male who presents today for a follow up of his Left Knee. Hx of Left Knee Arthroscopy 02/16/25. At his last visit on 03/07 the patient had his knee aspiration - with normal looking joint aspirate. A prescription was sent for Diclofenac. Pt states the Diclofenac did not help the pain and he is experiencing intermittent pain and feels tightness behind his knee when he extends his leg. HPI Comments Details: Interval History The patient is a 50-year-old male presenting with left knee pain and swelling post-arthroscopy. Initially, the patient reported feeling good after the surgery, but as he began using the knee more, he noticed increased swelling and eventually significant swelling that prompted evaluation for a possible blood clot, which was ruled out. The patient experienced numbness and tingling in the foot, which began approximately three weeks post-surgery and persists, particularly when driving. Fluid was aspirated from the knee, which provided temporary relief but was painful. 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 The patient has been attempting strength training exercises to build up his quadriceps as previously advised, but finds it painful, particularly when bending the knee fully. He reports a clicking sensation in both knees, which does not concern him but is noticeable. The patient has a history of an old ACL injury and a meniscus tear, with degenerative arthritis noted during surgery. He reports tightness in the knee when fully flexed, attributed to fluid accumulation. The patient has been exploring alternative treatments, including stem cell supplements, but remains skeptical about their efficacy. Results [facility] Medical History NAFL (nonalcoholic fatty liver) Hiatal hernia Hx of concussion Left knee pain Erectile dysfunction GERD (gastroesophageal reflux disease) HLD (hyperlipidemia) Surgical History Hx of lymph node biopsy Hx of vasectomy Hx of thumb surgery (07/13/24) Hx of arthroscopy of left knee (2015) S/p bilateral carpal tunnel release (2024) S/P right rotator cuff repair (2020) History of back surgery (2020) Social History Household Members: Significant Other Housing: House Are you a primary healthcare project manager to a significant other at home: No Do you presently have visiting nurse or other home services: No Patient Tobacco Use Status: Current someday Tobacco user Tobacco use type: Cigar Current occupational status: employed 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 5-125 deg motion adn medial joint line TTP Vital Signs: BMI result Body Mass Index 33.0 Assessment & Plan Assessment & Plan (1) Osteoarthritis of left knee: Code(s): M17.12 - Unilateral primary osteoarthritis, left knee Category: Medical Plan Plan 1. Left Knee Pain And Swelling Due To Degenerative Arthritis The plan includes considering PRP injections for the left knee to potentially reduce inflammation and improve symptoms, with a discussion about the cost and expected benefits. The patient is advised to continue using knee braces as they provide some relief, especially during work activities. Strengthening exercises for the quadriceps should be continued, but the patient is advised to avoid activities that exacerbate pain. Follow-up is recommended in 6-8 weeks to reassess symptoms and discuss further management options, including the potential for PRP injections. 2. Numbness And Tingling In The Foot An EMG is considered to evaluate the cause of the numbness and tingling in the foot, particularly to assess for any nerve compression or damage. The patient is advised to monitor symptoms and report any worsening or new symptoms. 3. Meniscus Tear In The Left Knee The meniscus tear will be monitored, and the patient is advised to avoid activities that may exacerbate the injury. 4. History Of Acl Injury In The Left Knee The patient is advised to continue with rehabilitation exercises to maintain knee stability and function. Discussion Notes During the visit, the patient and I discussed the ongoing issues with the left knee, including pain, swelling, and numbness in the foot. The clinician explained that the degenerative arthritis and meniscus tear contribute to the symptoms, and while surgery can address some issues, it does not resolve the underlying arthritis. The patient expressed interest in alternative treatments such as stem cell supplements and PRP injections, and the clinician provided information on the potential benefits and limitations of these options. The patient was advised on the importance of continuing with strengthening exercises and using knee braces to manage symptoms. The possibility of an EMG to further investigate the numbness and tingling in the foot was discussed, with the patient agreeing to consider this if symptoms persist. Patient Instructions - Continue using knee braces to help with support and pain relief, especially during work. - Perform strengthening exercises for your quadriceps, but avoid activities that cause pain. - Monitor your foot for any changes in numbness or tingling and report any worsening symptoms. - Consider PRP injections for your knee; discuss the cost and benefits with your doctor. - Follow up in 6-8 weeks to reassess your knee and discuss further treatment options. Coding Level of Care Code Est Pt Level 3 (38220) Diagnoses Osteoarthritis of left knee M17.12
[2025-04-14 09:10] VITALS: BMI 33.0
== END 2025-04-14 10:13 | disposition home or self-care (01) ==
LOC: HO.HOS 09:08
PROVIDERS: PCP Nurse Practitioner Family; Visit Provider Orthopaedic Surgery
DX: M17.12 Unilateral primary osteoarthritis, left knee (principal)
CPT/HCPCS: 99213

== ENCOUNTER → 2025-04-14 09:08 | Outpatient (BNVA) | payer OTHER, SELFPAY | PROVIDERS: PCP Nurse Practitioner Family; Visit Provider Orthopaedic Surgery | DX: M17.12 Unilateral primary osteoarthritis, left knee (principal); M25.462 Effusion, left knee; R20.0 Anesthesia of skin; R20.2 Paresthesia of skin | CPT/HCPCS: 99212 ==